=== PATIENT | male | born 2000 | race Caucasian/White ===

== ENCOUNTER 2025-10-06 18:37 | Emergency (ER) | payer BC ==
[~2025-10-06] VITALS: Ht 182.9 cm; Wt 96.3 kg
[2025-10-06] MEDS ORDERED: ASPIRIN 81 MG CHEW PO ONE (19:00)
[2025-10-06 19:02] LABS: BASOPHILS 0.6 % (0.2-1.2); EOSINOPHILS 1.5 % (0.8-7.0); LYMPHOCYTES 41.3 % (21.8-53.1); MCH 30.3 PG (25.7-32.2); MCHC 35.2 g/dL (32.3-36.5); MCV 85.9 fL (79.0-92.2); MONOCYTES 9.6 % (5.3-12.2); NEUTROPHILS 46.7 % (34.0-67.9); RBC 5.12 M/uL (4.63-6.08)
[2025-10-06 19:27] LABS: ALT (SGPT) 53.0 U/L (14-59); AST (SGOT) 21.0 U/L (15-37); GLOMERULAR FILTRATION RATE,EST 82.0 mL/min (>60); PROTEIN, TOTAL 7.9 g/dL (6.4-8.2); UREA NITROGEN 15.0 mg/dL (7-18)
[2025-10-06] MEDS ORDERED: CYCLOBENZAPRINE10 MG PO (20:42)
[2025-10-06 20:44] VITALS: BP 154/94
[2025-10-06] MEDS ORDERED: KETOROLAC TROMETHAMINE 30 MG/ML VIAL IV ONE (21:00)
[2025-10-06] MEDS ORDERED: CYCLOBENZAPRINE HCL 10 MG HOME.PACK PO ONE (21:00)
--- NOTE | 2025-10-07 12:08 | EKG ---
[facility] [address] [facility] [place] [id number] Signed Normal sinus rhythm Right atrial enlargement Possible Right ventricular hypertrophy Abnormal ECG When compared with ECG of 06-OCT-2025 18:43, (Unconfirmed) No significant change was found Confirmed by Madhav Stewart DO ([id number]) on 10/07/2025 12:07:54 PM Electronically Signed By: MADHAV STEWART DO 10/07/25 1208 PATIENT NAME: TANMAKI Electrocardiogram DATE OF : 4 PHYSICIAN: MADHAV STEWART DO REPORT #: [id number] REPORT IS CONFIDENTIAL AND NOT TO BE RELEASED WITHOUT AUTHORIZATION
== END 2025-10-06 21:11 | disposition home or self-care (01) ==
LOC: ED 18:37
PROVIDERS: Emergency Medicine
DX: R07.89 Other chest pain (principal)
CPT/HCPCS: 36415; 71045; 80053; 83735; 84484; 85025; 85379; 86140; 93005; 93010; 99285-25; A9270